=== PATIENT | male | born 1970 | race Caucasian/White ===

== ENCOUNTER → 2020-05-22 09:12 | Outpatient (CLI) | payer OTHER, SELFPAY ==
[2020-05-22 10:03] LABS: Add Manual Diff / Slide Review NO; Basophils Absolute Auto 0 /uL (0-100); Basophils Percent Auto 0.9 % (0-2); Eosinophils Absolute Auto 100 /uL (0-450); Eosinophils Percent Auto 1.5 % (2-4); Hematocrit 44.3 % (41-53); Hemoglobin 15.2 g/dL (13.5-17.5); Lymphocytes Absolute Auto 1500 /uL (1100-4500); Lymphocytes Percent Auto 30.1 % (25-40); Mean Corpuscular HGB Conc 34.4 % (30-36); Mean Corpuscular Volume 87.2 fL (80-100); Monocytes Absolute Auto 500 /uL (0-900); Monocytes Percent Auto 9.9 % (3-14); Neutrophils Absolute Auto 2800 /uL (1500-7000); Neutrophils Percent Auto 57.6 % (50-75); Platelet Count 192 X10^3/uL (150-400); Red Blood Cell Count 5.07 X10^6/uL (4.5-5.9); Red Cell Distribution Width 13.1 % (11.6-14.8); White Blood Cell Count 4.8 X10^3/uL (4.5-11.0)
[2020-05-22 10:04] LABS: Hemoglobin A1C% w Est Avg Glu 5.1 % (4.0-6.0)
[2020-05-22 10:05] LABS: Alanine Aminotransferase 40 IU/L (<50); Albumin 4.5 g/dL (3.5-5.0); Albumin Globulin Ratio 1.6 (1.0-2.8); Alkaline Phosphatase 56 U/L (38-126); Aspartate Aminotransferase 30 IU/L (17-59); BUN Creatinine Ratio 17.8 (6-22); Bilirubin Total 0.5 mg/dL (0.2-1.3); Blood Urea Nitrogen 18 mg/dL (9-20); Calcium 9.5 mg/dL (8.4-10.2); Carbon Dioxide 28 mmol/L (22-32); Chloride 104 mmol/L (98-107); Cholesterol 229 mg/dL (140-199); Estimated Glomerular Filt Rate > 60.0 mL/min (>60); Globulin 2.8 g/dL (1.7-4.1); Glucose 109 mg/dL (70-100); HDL Cholesterol 57 mg/dL (40-60); HEMOLYSIS < 15 (0-50); LDL Cholesterol Calculated 152 mg/dL (<100); Potassium 4.3 mmol/L (3.4-5.1); Sodium 138 mmol/L (137-145); Total Protein 7.3 g/dL (6.3-8.2); Triglycerides 100 mg/dL (35-150)
[2020-05-22 10:37] LABS: Creatinine Urine Random 204.8 mg/dL
[2020-05-22 10:41] LABS: Microalbumi Creatinin Ratio Ur 2.9 ug/mg CR (<30); Microalbumin Urine Random 0.6 mg/dL (0-1.6)
[2020-05-22 10:44] LABS: TSH w/ Reflex to FT4 1.38 uIU/mL (0.47-4.68)
== END ==
PROVIDERS: PCP Family Medicine; Referring Provider Family Medicine; Visit Provider Family Medicine
DX: I10 Essential (primary) hypertension (principal)
CPT/HCPCS: 36415; 80053; 80061; 82043; 82570; 83036; 84443; 85025

== ENCOUNTER → 2020-07-09 14:38 | Outpatient (CLI) | payer OTHER, SELFPAY ==
[2020-07-09] MEDS: COVID-19 VACC #1, MRNA(MOD) 100 MCG/0.5 ML VIAL IM (14:45)
== END ==
PROVIDERS: PCP Family Medicine; Visit Provider Internal Medicine
DX: Z23 Encounter for immunization (principal)
CPT/HCPCS: 0011A; 91301

== ENCOUNTER → 2020-08-14 15:02 | Outpatient (CLI) | payer OTHER, SELFPAY ==
[2020-08-14] MEDS: COVID-19 VACC #2, MRNA(MOD) 100 MCG/0.5 ML VIAL IM (15:11)
== END ==
PROVIDERS: PCP Family Medicine; Visit Provider Internal Medicine
DX: Z23 Encounter for immunization (principal)
CPT/HCPCS: 0012A; 91301

== ENCOUNTER → 2021-06-24 09:30 | Outpatient (CLI) | payer OTHER, SELFPAY ==
[2021-06-24 10:43] LABS: Add Manual Diff / Slide Review NO; Basophils Absolute Auto 0 /uL (0-100); Basophils Percent Auto 1.1 % (0-2); Eosinophils Absolute Auto 200 /uL (0-450); Eosinophils Percent Auto 4.3 % (2-4); Hematocrit 44.2 % (41-53); Hemoglobin 15.5 g/dL (13.5-17.5); Lymphocytes Absolute Auto 1600 /uL (1100-4500); Lymphocytes Percent Auto 36.4 % (25-40); Mean Corpuscular Hemoglobin 30.1 PG (26-34); Monocytes Absolute Auto 500 /uL (0-900); Monocytes Percent Auto 11.1 % (3-14); Neutrophils Absolute Auto 2000 /uL (1500-7000); Neutrophils Percent Auto 47.1 % (50-75); Platelet Count 190 X10^3/uL (150-400); Red Blood Cell Count 5.14 X10^6/uL (4.5-5.9); Red Cell Distribution Width 13.3 % (11.6-14.8); White Blood Cell Count 4.3 X10^3/uL (4.5-11.0)
[2021-06-24 10:47] LABS: Hemoglobin A1C% w Est Avg Glu 5.3 % (4.0-6.0)
[2021-06-24 11:47] LABS: Creatinine Urine Random 231.7 mg/dL
[2021-06-24 11:51] LABS: Microalbumi Creatinin Ratio Ur 3.8 ug/mg CR (<30); Microalbumin Urine Random 0.9 mg/dL (0-1.6)
[2021-06-24 12:18] LABS: Alanine Aminotransferase 59 IU/L (<50); Albumin 4.4 g/dL (3.5-5.0); Albumin Globulin Ratio 1.5 (1.0-2.8); Alkaline Phosphatase 46 U/L (38-126); Aspartate Aminotransferase 40 IU/L (17-59); Bilirubin Total 0.6 mg/dL (0.2-1.3); Blood Urea Nitrogen 19 mg/dL (9-20); Calcium 9.1 mg/dL (8.4-10.2); Carbon Dioxide 33 mmol/L (22-32); Chloride 102 mmol/L (98-107); Cholesterol 247 mg/dL (140-199); Estimated Glomerular Filt Rate > 60 mL/min (>60); Glucose 94 mg/dL (70-100); HDL Cholesterol 55 mg/dL (40-60); HEMOLYSIS < 15 (0-50); LDL Cholesterol Calculated 167 mg/dL (<100); Potassium 4.2 mmol/L (3.4-5.1); Sodium 138 mmol/L (137-145); Total Protein 7.4 g/dL (6.3-8.2); Triglycerides 124 mg/dL (35-150)
[2021-06-24 12:51] LABS: TSH w/ Reflex to FT4 1.38 uIU/mL (0.47-4.68)
== END ==
PROVIDERS: PCP Family Medicine; Referring Provider Family Medicine; Visit Provider Family Medicine
DX: I10 Essential (primary) hypertension (principal); L30.9 Dermatitis, unspecified; G47.33 Obstructive sleep apnea (adult) (pediatric); R73.9 Hyperglycemia, unspecified
CPT/HCPCS: 36415; 80053; 80061; 82043; 82570; 83036; 84443; 85025

== ENCOUNTER 2022-01-01 15:56 | Emergency (ER) | payer OTHER, SELFPAY ==
[2022-01-01 16:47] VITALS: BP 129/95; PULSE 95; RESP 18; TEMP 36.6; O2SAT 98; BMI 30.3
--- NOTE | 2022-01-01 16:57 | DI.RAD.S_ITS ---
PROCEDURE: XR FINGER LT MIN 2V INDICATIONS: cut off tip of pinky TECHNIQUE: AP hand, 2 views of the 5th finger(s) acquired. COMPARISON: None. FINDINGS: Bones: No fractures or dislocations. No suspicious bony lesions. Soft tissues: No suspicious soft tissue calcifications. No radiopaque foreign body seen. Bandages overlying the 5th digit limited evaluation. IMPRESSION: No acute osseous abnormality. Dictated by: Adrian Ceja M.D. on 01/01/2022 at 16:52 Approved by: Adrian Ceja M.D. on 01/01/2022 at 16:53
[2022-01-01] MEDS: BACITRACIN OINT 0.9 GM PCKT 1 APPLIC TOP (18:20)
[2022-01-01] MEDS: TET,DIPH,PERTUSS(ACELL),VAC/PF 0.5 ML SYRINGE IM (18:20)
--- NOTE | 2022-01-01 18:30 | ED.UPPEXIN ---
HPI - Extremity Injury (Upper) <SUKUMAR Rai - Last Filed: 01/01/22 19:59> General Chief Complaint: Extremity Injury, Upper Stated Complaint: Left Pinky Injury Time Seen by Provider: 01/01/22 17:52 Source: patient Mode of arrival: Ambulatory History of Present Illness HPI narrative: This is a 51-year-old male who presents to the emergency department with a partial left fingertip amputation to the left 5th little digit which occurred with a configuration management manager while he was working on wood just prior to arrival. He states that it cut the fingertip off and part of the nail. He states that he did see his bone, he is not on anticoagulants, denies any significant medical history, has full range of motion of his finger but states that the fingertip was bleeding so much she had a put a pressure dressing on it. Patient does not remember when his last tetanus vaccine was. Patient is right-handed, Related Data Previous Rx's Medication Instructions Recorded desonide 0.05 % topical cream 1 applic topical BID #15 grams 05/14/21 lisinopril 10 mg tablet See Rx Instructions .Route 12/22/21 .COMPLEX #90 tabs bismuth tribrom-petrolatum,wh 2 X #10 ea 01/01/22 2 bandage (Xeroform Petrolatum Dressing) cephalexin 500 mg capsule 500 mg PO BID 7 days #14 caps 01/01/22 hydrocodone 5 mg-acetaminophen 325 1 tab PO BID PRN pain #14 tabs 01/01/22 mg tablet mupirocin 2 % topical ointment 1 applic topical DAILY #15 grams 01/01/22 Allergies Allergy/AdvReac Type Severity Reaction Status Date / Time No Known Drug Allergies Allergy Unverified 05/14/21 08:07 Review of Systems <SUKUMAR Rai - Last Filed: 01/01/22 19:59> Review of Systems Narrative: Review of systems is negative for acute abnormalities unless otherwise noted in HPI Patient History <SUKUMAR Rai - Last Filed: 01/01/22 19:59> Medical History Chest wall pain Eczema Hyperglycemia Hypertension Left shoulder strain NANCY (obstructive sleep apnea) Social History Smoking Status: Never smoker Smoking Status: Never smoker alcohol intake frequency: a few times a week Substance Use Type: does not use Exam <SUKUMAR Rai - Last Filed: 01/01/22 19:59> Narrative Exam Narrative: Reviewed vitals signs and nursing notes. General: cooperative, comfortable, in no acute distress, well groomed MSK: moves all extremities, neurovascularly intact, left little finger with partial amputation of lateral aspect and finger pad partial nail removal, neurovascularly intact, oozing blood slowly, this was thoroughly irrigated with normal saline, some jagged edges of bone are palpable. No tissue to close the wound. Skin: brisk capillary refill, without pallor or erythema Neuro: normal speech and cognition, A&O x3, ambulatory, clear speech Initial Vital Signs Initial Vital Signs: Vital Signs Temperature 98 F 01/01/22 16:47 Pulse Rate 95 H 01/01/22 16:47 Respiratory Rate 18 01/01/22 16:47 Blood Pressure 129/95 H 01/01/22 16:47 Pulse Oximetry 98 01/01/22 16:47 Oxygen Delivery Method 01/01/22 16:47 <Guillermina Berry DO - Last Filed: 01/02/22 05:17> Initial Vital Signs Initial Vital Signs: Vital Signs Temperature 98 F 01/01/22 16:47 Pulse Rate 95 H 01/01/22 16:47 Respiratory Rate 18 01/01/22 16:47 Blood Pressure 129/95 H 01/01/22 16:47 Pulse Oximetry 98 01/01/22 16:47 Oxygen Delivery Method 01/01/22 16:47 Procedures <SUKUMAR Rai - Last Filed: 01/01/22 19:59> Laceration Repair Laceration 1: Site: hand Side (If applicable): left Size (cm): 3 Description: other (amputation) Depth: [id number] Local Anesthetic: lidocaine 2% Amount of anesthesia used (mL): 3 Pre-repair: wound explored, irrigated extensively, deep structures intact and wound margins revised (Trimmed the frayed edges of skin along the wound ) Skin layer closed with: other (Bacitracin with Surgicel and Xeroform with a pressure dressing and a metal splint) Course <Nilda Hernández [facility] - Last Filed: 01/01/22 19:59> Orders Ordered: Discontinued Medications Bacitracin (Bacitracin Oint 0.9 Gm Pckt) 1 applic TOP NOW ONE Stop: 01/01/22 18:07 Last Admin: 01/01/22 18:20 Dose: 1 applic Documented By: JOSE Cephalexin HCl (Cephalexin 250 Mg Capsule) 500 mg PO NOW ONE Stop: 01/01/22 19:35 Last Admin: 01/01/22 19:44 Dose: 500 mg Documented By: JOSE(2) Diphtheria/Tetanus/Acell Pertussis (Tet,Diph,Pertuss(Acell),Vac/Pf 0.5 Ml Syringe) 0.5 ml IM .ONCE ONE Stop: 01/01/22 18:06 Last Admin: 01/01/22 18:20 Dose: 0.5 ml Documented By: JOSE Ketorolac Tromethamine (Ketorolac 30 Mg/Ml Vial) 15 mg IM NOW ONE Stop: 01/01/22 18:27 Last Admin: 01/01/22 18:50 Dose: 15 mg Documented By: JOSE Lidocaine HCl (Lidocaine 2% Inj Mdv 20ml) 1 ml SUBCUT NOW ONE Stop: 01/01/22 18:29 Last Admin: 01/01/22 18:50 Dose: Not Given Documented By: JOSE Vital Signs Vital signs: Vital Signs - 8 hr 01/01/22 16:47 Temperature 98 F Pulse Rate 95 H Respiratory Rate 18 Blood Pressure 129/95 H Pulse Oximetry 98 Oxygen Delivery Method Room Air <Guillermina Berry DO - Last Filed: 01/02/22 05:17> Orders Ordered: Discontinued Medications Bacitracin (Bacitracin Oint 0.9 Gm Pckt) 1 applic TOP NOW ONE Stop: 01/01/22 18:07 Last Admin: 01/01/22 18:20 Dose: 1 applic Documented By: JOSE Cephalexin HCl (Cephalexin 250 Mg Capsule) 500 mg PO NOW ONE Stop: 01/01/22 19:35 Last Admin: 01/01/22 19:44 Dose: 500 mg Documented By: JOSE(2) Diphtheria/Tetanus/Acell Pertussis (Tet,Diph,Pertuss(Acell),Vac/Pf 0.5 Ml Syringe) 0.5 ml IM .ONCE ONE Stop: 01/01/22 18:06 Last Admin: 01/01/22 18:20 Dose: 0.5 ml Documented By: JOSE Ketorolac Tromethamine (Ketorolac 30 Mg/Ml Vial) 15 mg IM NOW ONE Stop: 01/01/22 18:27 Last Admin: 01/01/22 18:50 Dose: 15 mg Documented By: JOSE Lidocaine HCl (Lidocaine 2% Inj Mdv 20ml) 1 ml SUBCUT NOW ONE Stop: 01/01/22 18:29 Last Admin: 01/01/22 18:50 Dose: Not Given Documented By: JOSE Vital Signs Vital signs: Vital Signs - 8 hr 01/01/22 16:47 Temperature 98 F Pulse Rate 95 H Respiratory Rate 18 Blood Pressure 129/95 H Pulse Oximetry 98 Oxygen Delivery Method Room Air [facility] - Extremity Injury (Upper) <SUKUMAR Rai - Last Filed: 01/01/22 19:59> Imaging Data Extremity x-ray #1: Radiologist's Impression: PROCEDURE:? XR FINGER LT MIN 2V ? INDICATIONS:? cut off tip of pinky ? TECHNIQUE:? AP hand, 2 views of the 5th finger(s) acquired.? ? COMPARISON:? None. ? FINDINGS:? ? Bones:? No fractures or dislocations.? No suspicious bony lesions.? ? Soft tissues:? No suspicious soft tissue calcifications.? No radiopaque foreign body seen.? Bandages overlying the 5th digit limited evaluation.? ? IMPRESSION:? No acute osseous abnormality. ? ? Dictated by: Adrian Ceja M.D. on 01/01/2022 at 16:52 ? ? Approved by: Adrian Ceja M.D. on 01/01/2022 at 16:53 ? [facility] Narrative Medical decision making narrative: This is a 51-year-old male who presents the emergency department with a left little finger amputation which occurred just prior to arrival from a jointer that he was using while wood working. Consultation with Mary Carmen Myers regarding patient's wound, sent her a photo, x-ray of his left finger is negative for osseous abnormality. On visual inspection, there is bone visible, a jagged edge of bone and his wound margin was revised mildly to remove frayed skin tissue. Thorough irrigation with normal saline was completed, no foreign debris, patient's tetanus was updated, bacitracin, Surgicel and Xeroform was applied with a gauze dressing, metal finger splint, and patient was given Toradol for pain in the emergency department. Tolerated well, full range of motion is intact, sensation as well, no suspected tendon injury. Dr. Myers wishes for patient to follow-up at the [facility] orthopedic clinic on Monday. Patient has a colonoscopy scheduled this day but will try to have both appointments. He was given contact information, he was given strict return precautions for pain, bleeding, range of motion deficit or signs of infection. Was given cephalexin and 7 days b.i.d. for prophylactic antibiotics. Topical mupirocin ointment was prescribed as well as hydrocodone as needed for breakthrough pain. Patient is appropriate and amenable to discharge home. Vital signs are stable on repeat examination is unremarkable. Patient has been informed of results. Patient has been given strict return to ER precautions for any new or worsening symptoms. Patient understands to follow up closely with outpatient providers as instructed. Patient understands plan and agrees to discharge home. All questions and concerns answered at this time. Discharge Plan Departure Patient Disposition: Home Clinical Impression: Amputation finger Qualifiers: Encounter type: initial encounter Qualified Code(s): S68.119A - Complete traumatic metacarpophalangeal amputation of unspecified finger, initial encounter Instructions: DI for Traumatic Amputation Activity Restrictions/Additional Instructions: *You have been diagnosed with partial finger amputation. Please keep this protected any splint, avoid holding it dependent as it will swell and likely bleed. I am sorry for your injury, please follow-up at the [facility] orthopedic office on Monday afternoon with Dr. Adriana Myers's physician social services assistant. Please call the number below for an appointment. Please try and change your dressing at least once a day, use the yellow for nonstick, you may use a Surgicel if it is bleeding but it does stick to the wound. Please wash gently with cool running water as tolerated. I have sent some pain medication, antibiotics, and topical mupirocin/an antibiotic ointment to [facility]. Please return if you are having any pain, mobility concerns, or if it is bleeding any can not get it to stop. Please call the office of brooklyn Myers to follow-up with her on Monday. Let them know about your colonoscopy and and see when it works best for you. I am sorry for this injury. *What to do: *Please continue to take your regular medications as directed. [ x] New medication prescriptions sent to your pharmacy: [[facility]] [ ] New medication written as a paper prescription [ ] No new medications given *Please follow up with your primary care provider in 2-3 days, call for an appointment. Let them know you were seen in the Emergency Department and that we asked that you be seen for follow-up. We will electronically transmit a record of today's note if your PCP is in our system *If you do not have a primary care provider please contact [phone] to establish care with one of the [facility] primary care providers. *Return to Emergency Department if you should have any new, worsening, or concerning symptoms, such as [fever greater than 101F, chills, worsening pain, persistent vomiting or other bothersome symptoms]. Prescriptions: New cephalexin 500 mg capsule 500 mg PO BID 7 Days Qty: 14 0RF mupirocin 2 % ointment 1 applic topical DAILY Qty: 15 0RF hydrocodone-acetaminophen 5-325 mg tablet 1 tab PO BID PRN (Reason: pain) Qty: 14 0RF (DME) Xeroform Petrolatum Dressing 2 X 2 bandage See Rx Instructions .Route Qty: 10 0RF Rx Instructions: As directed No Action lisinopril 10 mg tablet See Rx Instructions .ROUTE .COMPLEX Qty: 90 3RF Dose Instruction: TAKE 1 TABLET BY MOUTH DAILY Rx Instructions: TAKE 1 TABLET BY MOUTH DAILY COVID-19 vacc,mRNA(Moderna)-PF 100 mcg/0.5 mL suspension 0.25 ml IM ONCE Qty: 0.25 0RF desonide 0.05 % cream 1 applic topical BID Qty: 15 1RF Rx Instructions: apply to affected area until gone. Referrals: Homero Judge MD [Primary Care Provider] - Adriana Myers MD [Physician] - (monday with her PAC) Visit Report Forms: Patient Portal/API <Guillermina Berry DO - Last Filed: 01/02/22 05:17> [facility] I was immediately available in the department for consultation. Documentation has been reviewed. Case was discussed with myself. Plan for orthopedic consultation and recommendations appreciated.
[2022-01-01] MEDS: LIDOCAINE 2% INJ SDV 10 ML (18:50)
[2022-01-01] MEDS: KETOROLAC 30 MG/ML VIAL 15 MG IM (18:50)
[2022-01-01] MEDS: cephALEXin 250 MG CAPSULE 500 MG PO (19:44)
[2022-01-01 19:49] VITALS: BP 124/81; PULSE 79; RESP 18; O2SAT 96
== END 2022-01-01 19:51 | disposition home or self-care (01) ==
PROVIDERS: Emergency Provider Nurse Practitioner Critical Care Medicine; PCP Family Medicine
DX: S68.127A Partial traumatic metacarpophalangeal amputation of left little finger, initial encounter (principal); W31.2XXA Contact with powered woodworking and forming machines, initial encounter; Z23 Encounter for immunization
CPT/HCPCS: 13132; 73140; 90471; 96372; 99283; 90715; J1885

== ENCOUNTER 2022-07-04 17:11 | Emergency (ER) | payer OTHER, SELFPAY ==
[2022-07-04 17:15] VITALS: BP 133/93; PULSE 87; RESP 19; TEMP 36.3; O2SAT 99; BMI 30.3
[2022-07-04 19:25] VITALS: BP 140/94; PULSE 80; RESP 18; O2SAT 97
--- NOTE | 2022-07-04 19:31 | ED.UPPEXIN ---
HPI - Extremity Injury (Upper) <Delmy Alvarenga PA-C - Last Filed: 07/04/22 19:37> General Chief Complaint: Extremity Injury, Upper Stated Complaint: cut left finger Time Seen by Provider: 07/04/22 18:08 Source: patient Mode of arrival: Family Vehicle History of Present Illness HPI narrative: 52-year-old male presents to the ED status post a laceration sustained to his left index finger. Patient states that he accidentally sustained the laceration at home while filetting a fish. Patient was able to apply pressure and stop the bleeding. Patient denies numbness, tingling, weakness. Patient has full range of motion. Patient's Tdap is up-to-date. Related Data Previous Rx's Medication Instructions Recorded desonide 0.05 % topical cream 1 applic topical BID #15 grams 05/14/21 lisinopril 10 mg tablet See Rx Instructions .Route 12/22/21 .COMPLEX #90 tabs bismuth tribrom-petrolatum,wh 2 X #10 ea 01/01/22 2 bandage (Xeroform Petrolatum Dressing) hydrocodone 5 mg-acetaminophen 325 1 tab PO BID PRN pain #14 tabs 01/01/22 mg tablet mupirocin 2 % topical ointment 1 applic topical DAILY #15 grams 01/01/22 Allergies Allergy/AdvReac Type Severity Reaction Status Date / Time No Known Drug Allergies Allergy Verified 07/04/22 17:15 Review of Systems <Delmy Alvarenga PA-C - Last Filed: 07/04/22 19:37> Review of Systems ROS Unobtainable: All systems reviewed & are unremarkable except as noted in HPI and below Constitutional Constitutional: Denies chills, Denies fatigue, Denies fever(s), Denies frequent falls, Denies lethargy and Denies weakness Eyes Eyes: Denies change in vision, Denies eye discharge, Denies irritation and Denies loss of vision ENT Ears, Nose, Mouth, and Throat: Denies change in voice, Denies dizziness, Denies neck pain, Denies sore throat and Denies throat swelling Cardiovascular Cardiovascular: Denies chest pain, Denies irregular heart rhythm, Denies lightheadedness, Denies palpitations, Denies dyspnea, Denies dyspnea on exertion and Denies orthopnea Respiratory Respiratory: Denies cough, Denies dyspnea, Denies dyspnea on exertion and Denies wheezing Gastrointestinal Gastrointestinal: Denies abdominal pain, Denies change in bowel habits, Denies diarrhea, Denies nausea and Denies vomiting Genitourinary Genitourinary: Denies hematuria, Denies flank pain, Denies urinary incontinence and Denies urinary urgency Musculoskeletal Musculoskeletal: Denies back pain, Denies muscle weakness, Denies neck pain, Denies numbness and Denies tingling Integumentary/Breasts Skin/Breast: Denies pruritus, Denies erythema, Denies rash and Reports wounds Neurologic Neurologic: Denies behavioral changes, Denies confusion, Denies dizziness, Denies frequent falls, Denies loss of vision, Denies numbness, Denies tingling and Denies weakness Psychiatric Psychiatric: Denies anxiety, Denies behavioral changes, Denies confusion, Denies depression, Denies homicidal ideation and Denies suicidal ideation Endocrine Endocrine: Denies fatigue, Denies flushing and Denies palpitations Hematologic/Lymphatic Hematologic/Lymphatic: Denies easy bruising Allergic/Immunologic Allergic/Immunologic: Denies urticaria, Denies throat swelling and Denies wheezing Patient History <Delmy Alvarenga PA-C - Last Filed: 07/04/22 19:37> Medical History Chest wall pain Eczema Hyperglycemia Hypertension Left shoulder strain NANCY (obstructive sleep apnea) Social History Smoking Status: Never smoker Smoking Status: Never smoker alcohol intake frequency: a few times a week Substance Use Type: does not use Exam <Delmy Alvarenga PA-C - Last Filed: 07/04/22 19:37> Narrative Exam Narrative: Const General:?cooperative, healthy appearing and comfortable [facility] Head:?normal to inspection Ears:?hearing grossly normal bilaterally Nose:?external nose normal Face and sinus:?normal facial exam and sinuses nontender Mouth:?oral mucosae normal Throat:?posterior oropharynx normal Eyes General:?appearance normal, both eyes and all related structures Neck Neck:?normal visual inspection and no lymphadenopathy noted Resp Effort & Inspection:?normal respiratory effort Auscultation:?clear to auscultation bilaterally Cardio Rate:?regular rate Rhythm:?regular rhythm Integumentary 1 cm linear laceration to dorsal aspect of left 2nd digit. No deeper structures visualized on exam. There is full range of motion. Strength and sensation is intact. Patient is neurovascularly intact. Neuro General:?patient alert, patient awake and patient oriented x3 Initial Vital Signs Initial Vital Signs: Vital Signs Temperature 97.3 F L 07/04/22 17:15 Pulse Rate 87 07/04/22 17:15 Respiratory Rate 07/04/22 17:15 Blood Pressure 133/93 H 07/04/22 17:15 Pulse Oximetry 99 07/04/22 17:15 Oxygen Delivery Method Room Air 07/04/22 17:15 <DO Ignacia Bazzi Last Filed: 07/05/22 07:23> Initial Vital Signs Initial Vital Signs: Vital Signs Temperature 97.3 F L 07/04/22 17:15 Pulse Rate 87 07/04/22 17:15 Respiratory Rate 07/04/22 17:15 Blood Pressure 133/93 H 07/04/22 17:15 Pulse Oximetry 99 07/04/22 17:15 Oxygen Delivery Method Room Air 07/04/22 17:15 Procedures <MARTÍN Olson Last Filed: 07/04/22 19:37> Laceration Repair Laceration 1: Site: hand Side (If applicable): left Size (cm): 1 Description: linear Depth: simple, single layer Local Anesthetic: lidocaine 1% Amount of anesthesia used (mL): 1 Pre-repair: wound explored, irrigated extensively and deep structures intact Skin layer closed with: vicryl Skin layer suture size: 5-0 Number of sutures: 4 Technique: simple, interrupted Course <MARTÍN Olson Last Filed: 07/04/22 19:37> Orders Ordered: Discontinued Medications Lidocaine HCl (Lidocaine 1% (Pf) 2ml) 2 ml INJ NOW ONE Stop: 07/04/22 18:51 Vital Signs Vital signs: Vital Signs - 8 hr 07/04/22 17:15 07/04/22 19:25 Temperature 97.3 F L Pulse Rate 87 80 Respiratory Rate 19 18 Blood Pressure 133/93 H 140/94 H Pulse Oximetry 99 97 Oxygen Delivery Method Room Air <DO Ignacia Bazzi Last Filed: 07/05/22 07:23> Orders Ordered: Discontinued Medications Lidocaine HCl (Lidocaine 1% (Pf) 2ml) 2 ml INJ NOW ONE Stop: 07/04/22 18:51 Vital Signs Vital signs: Vital Signs - 8 hr 07/04/22 17:15 07/04/22 19:25 Temperature 97.3 F L Pulse Rate 87 80 Respiratory Rate 19 18 Blood Pressure 133/93 H 140/94 H Pulse Oximetry 99 97 Oxygen Delivery Method Room Air MDM - Extremity Injury (Upper) <Delmy Alvarenga PA-C - Last Filed: 07/04/22 19:37> MDM Narrative Medical decision making narrative: 52-year-old male presents to the ED status post a laceration sustained to his left index finger. Laceration is linear, no deeper structures visualized, no imaging indicated for foreign bodies or fractures. Laceration was repaired with 4 sutures, which will need to come out in 7-10 days. Counseled patient on signs of infection, wound care. ED return precautions were discussed. Patient verbalized understanding. Medical records reviewed: Yes Discharge Plan Departure Patient Disposition: Home Clinical Impression: Laceration Instructions: DI for Laceration Repair Activity Restrictions/Additional Instructions: You were evaluated in the ED today for a finger laceration. The laceration was repaired with 4 sutures. The sutures will need to be removed in 7-10 days, for which you may go to a walk-in clinic, urgent care, PCP office or return to the ED. Please watch for signs of infection including redness, warmth, swelling, discharge, pain. Return to the ED if you note any signs of infection. Please keep the wound clean and dry for the 1st 24 hours, following which you may gently wash with soap and water and air dry. Please do not keep any wet dressings on the wound for any length of time. Prescriptions: No Action lisinopril 10 mg tablet See Rx Instructions .ROUTE .COMPLEX Qty: 90 3RF Dose Instruction: TAKE 1 TABLET BY MOUTH DAILY Rx Instructions: TAKE 1 TABLET BY MOUTH DAILY COVID-19 vacc,mRNA(Moderna)-PF 100 mcg/0.5 mL suspension 0.25 ml IM ONCE Qty: 0.25 0RF desonide 0.05 % cream 1 applic topical BID Qty: 15 1RF Rx Instructions: apply to affected area until gone. mupirocin 2 % ointment 1 applic topical DAILY Qty: 15 0RF hydrocodone-acetaminophen 5-325 mg tablet 1 tab PO BID PRN (Reason: pain) Qty: 14 0RF (DME) Xeroform Petrolatum Dressing 2 X 2 bandage See Rx Instructions .Route Qty: 10 0RF Rx Instructions: As directed Referrals: Homero Judge MD [Primary Care Provider] - Stand Alone Forms: Patient Portal/API <Bladimir Berumen, - Last Filed: 07/05/22 07:23> Cosign ED Attending Cosignature Attestation: Dr Berumen Co-Sign Statement: I was available for consultation during this patient's emergency department visit. This chart is signed by myself for administrative purposes only. I did not have direct contact with this patient during this visit. They were seen independently by the APC.
== END 2022-07-04 19:40 | disposition home or self-care (01) ==
PROVIDERS: Emergency Provider Student in an Organized Health Care Education/Training Program; PCP Family Medicine
DX: S61.211A Laceration without foreign body of left index finger without damage to nail, initial encounter (principal); W26.9XXA Contact with unspecified sharp object(s), initial encounter
CPT/HCPCS: 12001; 99283

== ENCOUNTER → 2023-01-21 10:23 | Outpatient (CLI) | payer OTHER, SELFPAY ==
[2023-01-21 11:03] LABS: Add Manual Diff / Slide Review NO; Basophils Absolute Auto 0 /uL (0-100); Eosinophils Absolute Auto 100 /uL (0-450); Eosinophils Percent Auto 2.3 % (2-4); Hematocrit 44.1 % (41-53); Hemoglobin 15.3 g/dL (13.5-17.5); Lymphocytes Absolute Auto 1600 /uL (1100-4500); Lymphocytes Percent Auto 40.7 % (25-40); Mean Corpuscular HGB Conc 34.8 % (30-36); Mean Corpuscular Volume 86.2 fL (80-100); Monocytes Absolute Auto 400 /uL (0-900); Monocytes Percent Auto 10.8 % (3-14); Neutrophils Absolute Auto 1800 /uL (1500-7000); Neutrophils Percent Auto 45.2 % (50-75); Platelet Count 209 X10^3/uL (150-400); Red Blood Cell Count 5.11 X10^6/uL (4.5-5.9); Red Cell Distribution Width 13.4 % (11.6-14.8); White Blood Cell Count 3.9 X10^3/uL (4.5-11.0)
[2023-01-21 12:29] LABS: Alanine Aminotransferase 54 IU/L (<50); Albumin 4.3 g/dL (3.5-5.0); Albumin Globulin Ratio 1.5 (1.0-2.8); Alkaline Phosphatase 50 U/L (38-126); Aspartate Aminotransferase 33 IU/L (17-59); BUN Creatinine Ratio 14.3 (6-22); Bilirubin Total 0.5 mg/dL (0.2-1.3); Blood Urea Nitrogen 14 mg/dL (9-20); Calcium 9.7 mg/dL (8.4-10.2); Carbon Dioxide 25 mmol/L (22-32); Chloride 106 mmol/L (98-107); Cholesterol 241 mg/dL (140-199); Estimated Glomerular Filt Rate > 60 mL/min (>60); Globulin 2.8 g/dL (1.7-4.1); Glucose 93 mg/dL (70-100); HDL Cholesterol 60 mg/dL (40-60); HEMOLYSIS < 15 (0-50); LDL Cholesterol Calculated 148 mg/dL (<100); Potassium 4.7 mmol/L (3.4-5.1); Sodium 139 mmol/L (137-145); Total Protein 7.1 g/dL (6.3-8.2); Triglycerides 166 mg/dL (35-150)
[2023-01-21 12:58] LABS: Prostate Specific Antigen Scrn 1.18 ng/mL (0.1-4.0)
[2023-01-21 15:38] LABS: Microalbumi Creatinin Ratio Ur 3.1 ug/mg CR (<30); Microalbumin Urine Random 0.6 mg/dL (0-1.6)
[2023-01-22 09:18] LABS: Apolipoprotein B 113 mg/dL (<90)
== END ==
PROVIDERS: PCP Family Medicine; Referring Provider Family Medicine; Visit Provider Family Medicine
DX: R73.9 Hyperglycemia, unspecified (principal); I10 Essential (primary) hypertension; L30.9 Dermatitis, unspecified; G47.33 Obstructive sleep apnea (adult) (pediatric); Z12.5 Encounter for screening for malignant neoplasm of prostate
CPT/HCPCS: 36415; 80053; 80061; 82043; 82172; 82570; 84443; 85025; G0103

== ENCOUNTER 2023-05-27 10:01 | Emergency (ER) | payer OTHER, SELFPAY ==
--- NOTE | 2023-05-27 10:14 | DI.RAD.S_ITS ---
PROCEDURE: XR CHEST 2V INDICATIONS: cough TECHNIQUE: 2 views of the chest were acquired. COMPARISON: None. FINDINGS: Surgical changes and devices: None. Lungs and pleura: Lungs are clear. No pleural effusions or pneumothorax. Mediastinum: Mediastinal contours are normal. Heart size is normal. Bones and chest wall: No suspicious bony abnormalities. Soft tissues appear unremarkable. IMPRESSION: No acute cardiopulmonary abnormality is seen. Dictated by: Leo Hutchins M.D. on 05/27/2023 at 9:57 Approved by: Leo Hutchins M.D. on 05/27/2023 at 9:57
[2023-05-27 10:15] VITALS: BP 150/92; PULSE 91; RESP 18; TEMP 37.1; O2SAT 97; BMI 29.7
--- NOTE | 2023-05-27 10:18 | ED.URI ---
HPI - URI/Sore Throat General Chief Complaint: Upper Respiratory Symptoms Stated Complaint: violent cough Time Seen by Provider: 05/27/23 10:02 History of Present Illness HPI Narrative: 53-year-old male presents for persistent, hacking cough. Was seen at urgent care 2 days ago started on Flonase, albuterol, Tessalon, dextromethorphan/promethazine syrup and prednisone. Patient states that he was not able to sleep at night due to the severity of his cough and he coughs so hard that he becomes nauseous. He was concerned that he may need an x-ray. Denies chest pain, shortness of breath. States that his cough is his primary concern. Related Data Previous Rx's Medication Instructions Recorded losartan 50 mg tablet 50 mg PO DAILY #90 tabs 01/16/23 hydrocodone-homatropine 5 mg-1.5 5 ml PO Q4-6H PRN cough #200 mL 05/27/23 mg/5 mL (5 mL) oral syrup (Hycodan) Allergies Allergy/AdvReac Type Severity Reaction Status Date / Time No Known Drug Allergies Allergy Verified 01/16/23 15:53 Review of Systems Review of Systems Narrative: Negative except as noted above Patient History Medical History Hyperlipidemia Hyperglycemia Hypertension Left shoulder strain Chest wall pain Eczema NANCY (obstructive sleep apnea) Social History Smoking Status: Former smoker Smoking Status: Former smoker alcohol intake frequency: a few times a week Substance Use Type: does not use Exam Initial Vital Signs Initial Vital Signs: Vital Signs Temperature 98.8 F 05/27/23 10:15 Pulse Rate 91 H 05/27/23 10:15 Respiratory Rate 18 05/27/23 10:15 Blood Pressure 150/92 H 05/27/23 10:15 Pulse Oximetry 97 05/27/23 10:15 Oxygen Delivery Method Room Air 05/27/23 10:15 Const: Awake, alert, no acute distress, nontoxic appearing Cardiac: regular rate, regular rhythm RESP: unlabored, clear bilaterally, no wheezing GI: Soft, nontender, nondistended, no rebound, no guarding MSK: Atraumatic, full range of motion, pulses equal Skin: Warm, Dry, intact, no rashes Neuro: AO x3, CN II-XII grossly intact, moves all extremities Course Orders Ordered: ED Orders 05/27/23 10:14 CXR [XR chest 2V] Stat Vital Signs Vital signs: Vital Signs - 8 hr 05/27/23 10:15 Temperature 98.8 F Pulse Rate 91 H Respiratory Rate 18 Blood Pressure 150/92 H Pulse Oximetry 97 Oxygen Delivery Method Room Air MDM - URI/Sore Throat Differential Diagnosis Differential diagnosis: Likely upper respiratory infection, croup and viral infection MDM Narrative Medical decision making narrative: Persistent nonproductive cough concerning for bronchitis. Lungs are clear to auscultation bilaterally, there is no wheezing, no rales, no rhonchi, patient is saturating well on room air and speaking in complete sentences without dyspnea or difficulty. Two-view chest x-ray negative for acute processes. Patient is on multiple different medications, these do not seem to be helping his cough or his symptoms. Patient has completely clear lungs, I do not believe that Flonase or albuterol will help his symptoms and advised him to stop these medications unless he feels he was wheezing. We will trial Hycodan syrup since he was unable to sleep due to the severity of his cough. Patient advised to not take the dextromethorphan/promethazine liquid while taking this medication into not to take this medication with alcohol or before operating heavy machinery. PCP follow up advised. ED return precautions discussed at bedside. Patient expressed understanding of the plan and is in agreement at this time. All questions answered at the time of discharge. Discharge Plan Departure Patient Disposition: Home Clinical Impression: Bronchitis Instructions: DI for Acute Bronchitis Activity Restrictions/Additional Instructions: Make sure to drink plenty of fluids, get plenty of rest. The prescribed cough medication will hopefully help decrease your cough. Prescriptions: New hydrocodone-homatropine [Hycodan] 5-1.5 mg/5 mL (5 mL) syrup 5 ml PO Q4-6H PRN (Reason: cough) Qty: 200 0RF No Action losartan 50 mg tablet 50 mg PO DAILY Qty: 90 1RF Referrals: Homero Judge MD [Primary Care Provider] - Stand Alone Forms: Patient Portal/API
[2023-05-27 11:17] VITALS: BP 132/93; PULSE 84; RESP 24; O2SAT 95
== END 2023-05-27 11:18 | disposition home or self-care (01) ==
PROVIDERS: Emergency Provider Emergency Medicine; PCP Family Medicine
DX: J40 Bronchitis, not specified as acute or chronic (principal); Z87.891 Personal history of nicotine dependence
CPT/HCPCS: 71046; 99283

== ENCOUNTER → 2024-02-16 10:08 | Outpatient (CLI) | payer OTHER, SELFPAY ==
[2024-02-16 11:03] LABS: Add Manual Diff / Slide Review NO; Basophils Absolute Auto 0 /uL (0-100); Basophils Percent Auto 1.1 % (0-2); Eosinophils Absolute Auto 100 /uL (0-450); Hematocrit 44.8 % (41-53); Hemoglobin 15.3 g/dL (13.5-17.5); Lymphocytes Absolute Auto 1400 /uL (1100-4500); Lymphocytes Percent Auto 34.3 % (25-40); Mean Corpuscular HGB Conc 34.2 % (30-36); Mean Corpuscular Hemoglobin 30.3 PG (26-34); Mean Corpuscular Volume 88.5 fL (80-100); Monocytes Absolute Auto 500 /uL (0-900); Monocytes Percent Auto 12.4 % (3-14); Neutrophils Absolute Auto 2000 /uL (1500-7000); Neutrophils Percent Auto 50.2 % (50-75); Platelet Count 226 X10^3/uL (150-400); Red Blood Cell Count 5.07 X10^6/uL (4.5-5.9); Red Cell Distribution Width 13.1 % (11.6-14.8)
[2024-02-16 11:24] LABS: Alanine Aminotransferase 67 IU/L (<50); Albumin 4.3 g/dL (3.5-5.0); Albumin Globulin Ratio 1.7 (1.0-2.8); Alkaline Phosphatase 56 U/L (38-126); Aspartate Aminotransferase 43 IU/L (17-59); BUN Creatinine Ratio 18.9 (6-22); Bilirubin Total 0.7 mg/dL (0.2-1.3); Blood Urea Nitrogen 20 mg/dL (9-20); Calcium 9.6 mg/dL (8.4-10.2); Carbon Dioxide 26 mmol/L (22-32); Chloride 103 mmol/L (98-107); Cholesterol 236 mg/dL (140-199); Estimated Glomerular Filt Rate > 60 mL/min (>60); Globulin 2.6 g/dL (1.7-4.1); Glucose 97 mg/dL (70-100); HDL Cholesterol 53 mg/dL (40-60); HEMOLYSIS < 15 (0-50); LDL Cholesterol Calculated 152 mg/dL (<100); Potassium 4.4 mmol/L (3.4-5.1); Sodium 135 mmol/L (137-145); Total Protein 6.9 g/dL (6.3-8.2); Triglycerides 155 mg/dL (35-150)
[2024-02-16 11:44] LABS: Creatinine Urine Random 237.37 mg/dL
[2024-02-16 11:51] LABS: Microalbumin Urine Random < 0.6 mg/dL (0-1.6)
[2024-02-16 11:56] LABS: Prostate Specific Antigen Scrn 0.725 ng/mL (0.1-4.0); TSH w/ Reflex to FT4 1.22 uIU/mL (0.47-4.68)
[2024-02-19 11:36] LABS: Lipoprotein (a) 33.2 nmol/L (<75.0)
== END ==
PROVIDERS: PCP Family Medicine; Referring Provider Family Medicine; Visit Provider Family Medicine
DX: Z12.5 Encounter for screening for malignant neoplasm of prostate (principal); E78.5 Hyperlipidemia, unspecified; R73.9 Hyperglycemia, unspecified; I10 Essential (primary) hypertension; G47.33 Obstructive sleep apnea (adult) (pediatric); Z82.49 Family history of ischemic heart disease and other diseases of the circulatory system
CPT/HCPCS: 36415; 80053; 80061; 82043; 82570; 83695; 84443; 85025; G0103

== ENCOUNTER 2024-06-30 12:24 | Emergency (ER) | payer OTHER, SELFPAY ==
[2024-06-30] VITALS (14 sets, daily range): BP systolic 139–153; BP diastolic 83–100; PULSE 78–101; RESP 11–28; TEMP 36.1–36.9; O2SAT 96–100; BMI 30.3
--- NOTE | 2024-06-30 12:33 | DI.RAD.S_ITS ---
PROCEDURE: XR KNEE RT 1TO2V INDICATIONS: Fall from roof and landed on ladder rt leg deformity and huong TECHNIQUE: 3 views of the knee were acquired. COMPARISON: None. FINDINGS: Bones: No fractures or dislocations. No suspicious bony lesions. Soft tissues: No joint effusion. No suspicious soft tissue calcifications. IMPRESSION: No acute bony abnormality or significant effusion. Approved by: Sekou Martin M.D. on 06/30/2024 at 12:53
--- NOTE | 2024-06-30 12:33 | DI.RAD.S_ITS ---
PROCEDURE: XR ANKLE RT MIN 3V INDICATIONS: Fall from roof and landed on ladder rt leg deformity and huong TECHNIQUE: 3 views of the ankle were acquired. COMPARISON: None. FINDINGS: Bones: No fractures or dislocations. Ankle mortise is normally aligned. No suspicious bony lesions. Soft tissues: No tibiotalar joint effusion. Achilles tendon appears normal. IMPRESSION: No acute bony abnormality or significant effusion. Approved by: Sekou Martin M.D. on 06/30/2024 at 12:50
--- NOTE | 2024-06-30 12:33 | DI.RAD.S_ITS ---
PROCEDURE: XR FEMUR RT MIN 2V INDICATIONS: Fall from roof and landed on ladder rt leg deformity and huong TECHNIQUE: 2 views of the femur were acquired. COMPARISON: None. FINDINGS: Bones: No fractures or dislocations. No suspicious bony lesions. Soft tissues: No suspicious soft tissue calcifications or masses. IMPRESSION: Moderate arthritic hip joint space narrowing. No fracture Approved by: Sekou Martin M.D. on 06/30/2024 at 12:43
--- NOTE | 2024-06-30 12:33 | DI.RAD.S_ITS ---
PROCEDURE: XR TIBIA FIBULA RT 2V INDICATIONS: Fall from roof and landed on ladder rt leg deformity and uhong TECHNIQUE: 2 views of the tibia and fibula were acquired. COMPARISON: [facility], CR, XR ANKLE RT MIN 3V, 06/30/2024, 12:32. [facility], CR, XR FEMUR RT MIN 2V, 06/30/2024, 12:32. FINDINGS: Bones: No fractures or dislocations. No suspicious bony lesions. Soft tissues: No suspicious soft tissue calcifications or masses. IMPRESSION: No acute bony abnormality. Approved by: Sekou Martin M.D. on 06/30/2024 at 12:57
[2024-06-30] MEDS: ONDANSETRON 4 MG/2 ML INJ IV (12:57)
[2024-06-30] MEDS: MORPHINE 4 MG/ML INJ IV (12:57)
--- NOTE | 2024-06-30 15:46 | ED_ITS ---
HPI - Trauma General Chief Complaint: Trauma Stated Complaint: fell off roof, poss broken rt leg Time Seen by Provider: 06/30/24 13:08 Source: patient and family Mode of arrival: Wheelchair Limitations: no limitations History of Present Illness HPI narrative: 54-year-old male history of hypertension presents with complaint of left leg injury. Patient was on his roof states he set up his ladder has not a frame ra ther than being leaned against the roof. When he went to step down his leg slipped between the rungs and he fell to the ground. Patient states pain in his right lower extremity. Thought maybe he had broken it. States no other injuries. He denies hitting his head. No loss of consciousness. Denies any neck or back pain, no chest pain or shortness of breath. No nausea or vomiting. No numbness or tingling in his extremities. No weakness. Patient denies any GI or urinary symptoms. No incontinence. Describes pain as being in his right lower extremity particularly in the region of the calf. He states he does have some abrasions. Painful to weightbear. Describes it pain is mostly being in the calf region and that is quite swollen compared to the other 1. He does not think it has been increasing in size as he has been in the department. States his tetanus is up-to-date in the last 5 years. He states losartan as has only daily medication. Denies any major surgeries. No known drug allergies. No tobacco, occasional alcohol, none today. No recreational drugs. This occurred shortly before arrival. Related Data Previous Rx's Medication Instructions Recorded losartan 50 mg tablet 50 mg PO DAILY #90 tabs 11/28/23 Allergies Allergy/AdvReac Type Severity Reaction Status Date / Time No Known Drug Allergies Allergy Verified 02/16/24 09:17 Review of Systems Review of Systems ROS Unobtainable: All systems reviewed & are unremarkable except as noted in HPI and below Patient History Medical History Hyperlipidemia Hyperglycemia Hypertension Left shoulder strain Chest wall pain Eczema ANNCY (obstructive sleep apnea) Social History Smoking Status: Never smoker Smoking Status: Never smoker alcohol intake frequency: a few times a week Exam Narrative Exam Narrative: GEN: Patient appears in mild distress. HEAD: No evidence of trauma, no raccoon/Chaudhry sign. NECK: Nontender, painless range of motion, trachea midline Negative Nexus criteria, no mid line tenderness, distracting injury, altered mental status, neuro deficit, recent EtOH. EYES: PERRLA, EOMI ENT: External inspection normal, trachea is midline, TM's are normal no hemotypanum, Nares are clear, no septal hematoma, no dental or oral injury, airway is normal and with normal occlusion, No bony tenderness RESP: Chest is nontender and has symmetric movement, no ecchymosis, breath sounds are normal no crackles, wheezes or rales CVS: Heart sounds are normal, no murmur noted, No JVD. ABG/GI: Nontender, soft, normal bowel sounds, no distention, no organomegaly, pelvic rock is negative NEURO: Oriented AOx3, neuro is grossly intact, sensation and motor is normal all 4 extremities moving, cranial nerves II through XII are intact, GCS is 15 PSYCH: Normal mood and affect SKIN: Patient has a abrasions of the right anterior mark, as well as right thigh, warm and dry, no crepitus and without decubitus BACK: No CVA tenderness, no vertebral tenderness, no step-off's, no crepitus EXT: No bony tenderness on exam. Patient has full range of motion does have little bit more discomfort with flexion of the knee but states it feels tight. He was able to dorsiflex and plantar flex but has increased pain when he dorsiflexes with in the calf. His gout Margy's tenderness palpable. He does have what looks to be swelling of the calf itself. There is a little bit of ecchymosis but no obvious hematoma. Compartments are soft. Patient does not have any bony tenderness of the foot, ankle, tib-fib knee femur or trochanter. He has good range of motion throughout the entire leg with 2+ pulses bilaterally. Swelling seems to be more associated with the calf in comparison to the left side. Is mildly tender with squeeze. Hips are nontender, no pedal edema, normal color and temperature, normal range of motion of extremities with normal tendon exam, 2+ pulses in all four extremities Initial Vital Signs Initial Vital Signs: Vital Signs Pulse Rate 101 H 06/30/24 12:35 Blood Pressure 147/91 H 06/30/24 12:35 Pulse Oximetry 98 06/30/24 12:35 Course Orders Ordered: ED Orders 06/30/24 12:33 XR ankle RT min 3V Stat XR femur RT min 2V Stat XR knee RT 1to2V Stat XR tibia fibula RT 2V Stat 06/30/24 15:58 US extremity nonvasc lower rt Stat Discontinued Medications Ibuprofen (Ibuprofen 400 Mg Tablet) 800 mg PO NOW ONE Stop: 06/30/24 16:00 Last Admin: 06/30/24 16:00 Dose: 800 mg Documented By: CORNEL Morphine Sulfate (Morphine 4 Mg/Ml Inj) 4 mg IV NOW ONE Stop: 06/30/24 12:54 Last Admin: 06/30/24 12:57 Dose: 4 mg Documented By: CORNEL Ondansetron HCl (Ondansetron 4 Mg/2 Ml Inj) 4 mg IV NOW ONE Stop: 06/30/24 12:54 Last Admin: 06/30/24 12:57 Dose: 4 mg Documented By: CORNEL Vital Signs Vital signs: Vital Signs - 8 hr 06/30/24 12:35 06/30/24 12:35 06/30/24 12:37 Temperature 97 F L Pulse Rate 101 H 96 H Respiratory Rate 20 Blood Pressure 147/91 H 147/91 H Pulse Oximetry 98 100 Oxygen Delivery Method Room Air 06/30/24 13:00 06/30/24 13:00 06/30/24 13:30 Temperature Pulse Rate 85 Respiratory Rate 18 Blood Pressure 149/94 H 149/94 H Pulse Oximetry 98 Oxygen Delivery Method 06/30/24 13:30 06/30/24 14:00 06/30/24 14:00 Temperature Pulse Rate 82 79 Respiratory Rate 12 11 L Blood Pressure 145/92 H Pulse Oximetry 96 97 Oxygen Delivery Method 06/30/24 14:30 06/30/24 14:30 06/30/24 14:56 Temperature Pulse Rate 80 85 Respiratory Rate 22 22 Blood Pressure 144/97 H Pulse Oximetry 97 98 Oxygen Delivery Method 06/30/24 14:56 06/30/24 15:00 06/30/24 15:30 Temperature Pulse Rate 83 81 Respiratory Rate 18 15 Blood Pressure 142/93 H Pulse Oximetry 97 98 Oxygen Delivery Method 06/30/24 15:30 06/30/24 16:00 06/30/24 16:00 Temperature Pulse Rate 84 Respiratory Rate 20 Blood Pressure 139/93 H 142/100 H Pulse Oximetry 97 Oxygen Delivery Method 06/30/24 16:30 06/30/24 16:30 06/30/24 17:00 Temperature Pulse Rate 78 91 H Respiratory Rate 24 18 Blood Pressure 153/95 H Pulse Oximetry 99 98 Oxygen Delivery Method 06/30/24 17:00 06/30/24 17:30 06/30/24 17:30 Temperature 98.4 F Pulse Rate 95 H Respiratory Rate 28 H Blood Pressure 147/83 H 142/86 H Pulse Oximetry 98 Oxygen Delivery Method MDM - Trauma MDM Narrative Medical decision making narrative: 54-year-old male fall from approximately 8-10 feet, patient accidentally slipped his leg between the ladder rungs and fell to the ground. Denies any other injury his exam is overall reassuring he has tenderness of the calf and with weight-bearing. He was mildly tender with squeeze, no bony changes and he was nontender to the bones of his lower extremities. Suspect patient might have hematoma versus possible muscular tear injury although patient has good range of motion in all of his extremities. Did obtain ultrasound to evaluate the soft tissues. This shows what appears to be likely intramuscular hematoma. Patient was able to stand get off the bed and move his leg without issue but it was kassidy te uncomfortable trying to weightbear, Right femur x-ray shows moderate arthritic hip joint space narrowing no fracture. Right knee shows no acute bony abnormality significant effusion. Three views were required. Right tib-fib shows no acute bony change. Right ankle x-ray shows no acute bony abnormality significant effusion. Ultrasound lower extremity soft tissue. Patient was irregular fluid collection 3.1 x 1.1 x 1.6 cm consistent with intramuscular hematoma. Spoke with tech they did not see any acute bleeding. Patient had dose of IV pain medication and no ondansetron here in the depa rtment. Did have oral ibuprofen as well. Patient states ibuprofen has been very helpful. Plan for toe-touch weight-bearing, crutches, ortho boot. Follow up as needed. Discussed possibility of partial muscle tear but seems less likely as patient has good range of motion and strength on exam. Discussed with the patient and family. Discussed return precautions here, follow up with primary care orthopedic surgery depending on his symptoms. Decreased activity with toe-touch weight-bearing as tolerated. We will provide crutches here in the department. Discharge Plan Departure Patient Disposition: Home Clinical Impression: Hematoma of left lower extremity, Abrasion of left leg Fall from ladder Qualifiers: Encounter type: initial encounter Qualified Code(s): W11.XXXA - Fall on and from ladder, initial encounter Instructions: DI for Hematoma (Bruise) Activity Restrictions/Additional Instructions: Follow up for recheck with the orthopedic surgery. Please call tomorrow morning to set up follow up. Your imaging does show an area that appears consistent with a hematoma, proximally 3.1 x 1.1 x 1.6cm. I would recommend compression with Carlos A wrap regularly. If your symptoms completely resolve your ambulating without issue you did not have to follow up with Orthopedic surgery. If you are having persistent pain I would follow up with them or primary care. There is a possibility of having a partial muscle tear although your strength and movement today is normal. You can take acetaminophen up to a 1000 mg every 6 hours and/or ibuprofen up to 600 mg every 6 hours as needed for pain. You may toe-touch weightbear as tolerated. Please use crutches. Splint Care: Keep splint clean and dry. Elevated affected body part to decrease swelling. OK to use ice pack on the affected body part. Use for 15-20 minutes each time, for 5-6x per day. If you develop worsening pain, numbness, tingling, discoloration of the affected body part, loosen the splint by loosening the CARLOS A wrap, and either see your doctor for an urgent re-assessment, or return to the Emergency Department. Return to the Emergency Department for any new or worsening symptoms. Prescriptions: No Action losartan 50 mg tablet 50 mg PO DAILY Qty: 90 0RF Referrals: Homero Judge MD [Primary Care Provider] - Georgi Felipe MD [Physician] - Stand Alone Forms: Patient Portal/API/Survey
--- NOTE | 2024-06-30 15:58 | DI.US.S_ITS ---
PROCEDURE: US EXTREMITY NONVASC LOWER RT INDICATIONS: swelling calf, fell off ladder, leg caught between, r/o niru TECHNIQUE: Real-time scanning was performed of the right calf , with image documentation. COMPARISON: None. FINDINGS: At the area of interest, irregular fluid collection measures approximately 3.1 x 1.1 x 1.6 cm consistent with an intramuscular hematoma IMPRESSION: Intramuscular soft tissue hematoma Approved by: Sekou Martin M.D. on 06/30/2024 at 15:59
[2024-06-30] MEDS: IBUPROFEN 400 MG TABLET 800 MG PO (16:00)
== END 2024-06-30 17:42 | disposition home or self-care (01) ==
PROVIDERS: Emergency Provider Emergency Medicine; PCP Family Medicine
DX: S80.12XA Contusion of left lower leg, initial encounter (principal); S80.812A Abrasion, left lower leg, initial encounter; W13.2XXA Fall from, out of or through roof, initial encounter; W11.XXXA Fall on and from ladder, initial encounter
CPT/HCPCS: 73551; 73552; 73560; 73590; 73610; 76882; 96374; 96375; 99284; J2270; J2405

== ENCOUNTER → 2025-03-04 10:06 | Outpatient (CLI) | payer OTHER, SELFPAY ==
[2025-03-04 11:28] LABS: Add Manual Diff / Slide Review NO; Hematocrit 44.0 % (41-53); Hemoglobin 15.2 g/dL (13.5-17.5); Lymphocytes Absolute Auto 1300 /uL (1100-4500); Mean Corpuscular HGB Conc 34.5 % (30-36); Mean Corpuscular Hemoglobin 29.6 PG (26-34); Mean Corpuscular Volume 85.7 fL (80-100); Platelet Count 232 X10^3/uL (150-400)
[2025-03-04 12:09] LABS: Alanine Aminotransferase 45 IU/L (<50); Albumin 4.3 g/dL (3.5-5.0); Albumin Globulin Ratio 1.6 (1.0-2.8); Alkaline Phosphatase 60 U/L (38-126); Blood Urea Nitrogen 21 mg/dL (9-20); Calcium 9.4 mg/dL (8.4-10.2); Carbon Dioxide 27 mmol/L (22-32); Chloride 104 mmol/L (98-107); Cholesterol 236 mg/dL (140-199); Estimated Glomerular Filt Rate > 60 mL/min (>60); Globulin 2.7 g/dL (1.7-4.1); Glucose 100 mg/dL (70-99); HDL Cholesterol 59 mg/dL (40-60); HEMOLYSIS < 15 (0-50); Potassium 4.5 mmol/L (3.4-5.1); Sodium 136 mmol/L (137-145); Total Protein 7.0 g/dL (6.3-8.2); Triglycerides 179 mg/dL (35-150)
[2025-03-04 12:39] LABS: TSH w/ Reflex to FT4 1.72 uIU/mL (0.47-4.68)
== END ==
PROVIDERS: PCP Family Medicine; Referring Provider Family Medicine; Visit Provider Family Medicine
DX: E78.2 Mixed hyperlipidemia (principal); R73.9 Hyperglycemia, unspecified; I10 Essential (primary) hypertension; G47.33 Obstructive sleep apnea (adult) (pediatric); Z12.5 Encounter for screening for malignant neoplasm of prostate; Z82.49 Family history of ischemic heart disease and other diseases of the circulatory system
CPT/HCPCS: 36415; 80053; 80061; 82043; 82570; 83695; 84443; 85025; G0103